=== PATIENT | female | born 1945 | race Caucasian/White ===

== ENCOUNTER 2022-06-10 13:25 | Outpatient (CLI) | payer MEDICARE, SELFPAY ==
--- NOTE | 2022-06-10 13:49 | MR_ITS ---
WS: [id number] MRI LUMBAR SPINE NONCONTRAST TECHNIQUE: Sagittal T1, T2 and STIR imaging. Axial T1 and T2 imaging. CLINICAL INFORMATION: OSTEOARTHRITIS OF SPINE W/RADICULOPATHY,LUMBAR REGION COMPARISON: None. FINDINGS: Mild lumbar curve. No acute compression. No high-grade central canal stenosis. L1-L2: Slight retrolisthesis L1 on L2. Mild facet arthropathy. Spinal canal and foramen are patent. L2-L3: Slight retrolisthesis. Mild annular bulging. Narrowing of the RIGHT subarticular recess with s light impingement on traversing RIGHT L3 nerve root. Mild facet arthropathy. Mild RIGHT foraminal shahram rowing. L3-L4: Mild annular bulging. Mild facet arthropathy. Mild RIGHT foraminal narrowing. Spinal canal is patent. L4-L5: Mild annular bulging with mild central canal stenosis. Impingement traversing L5 nerve roots b ilaterally. Moderate facet arthropathy with ligamentum flavum hypertrophy. Mild LEFT foraminal narrow ing. L5-S1: Mild disc bulging with impingement on the traversing LEFT S1 nerve root in the subarticular re cess. Moderate facet arthropathy. Moderate LEFT foraminal narrowing. RIGHT foramen is patent. Visualized pelvic bony structures: Normal. Paravertebral soft tissues: Normal. MR/MR lumbar spine wo con* [id number] IMPRESSION: 1. Mild central canal stenosis L4-L5 with impingement on the traversing L5 ner ve roots bilaterally. Mild LEFT L4-L5 foraminal narrowing. 2. Disc bulge L5-S1 impinges the traversing LEFT S1 nerve root in the subartic ular recess. 3. Moderate LEFT L5-S1 foraminal narrowing impinges the exiting LEFT L5 nerve root. 4. Slight narrowing of the RIGHT L2-L3 subarticular recess. 5. Mild RIGHT L3-L4 foraminal narrowing. 6. Moderate facet arthropathy L4-L5 and L5-S1.
== END 2022-06-10 13:26 | disposition home or self-care (01) ==
PROVIDERS: PCP Nurse Practitioner Family; Visit Provider Nurse Practitioner Family
DX: M47.26 Other spondylosis with radiculopathy, lumbar region (principal); M48.061 Spinal stenosis, lumbar region without neurogenic claudication; M47.817 Spondylosis without myelopathy or radiculopathy, lumbosacral region; M48.07 Spinal stenosis, lumbosacral region; M51.27 Other intervertebral disc displacement, lumbosacral region
CPT/HCPCS: 72148

== ENCOUNTER → 2022-07-06 13:13 | Outpatient (BNVA) | payer MEDICARE, SELFPAY | PROVIDERS: PCP Nurse Practitioner Family; Referring Provider Nurse Practitioner Family; Visit Provider Physician Assistant | DX: M54.50 Low back pain, unspecified (principal) | CPT/HCPCS: 72110; 99203 ==